=== PATIENT | male | born 1985 | race Caucasian/White ===

== ENCOUNTER 2020-12-07 18:47 | Emergency (ER) | payer OTHER ==
[~2020-12-07] VITALS: Ht 188 cm; Wt 129.6 kg
[2020-12-07] MEDS ORDERED: haloperidol lactate 5mg/ml inj IM ONE (19:30)
[2020-12-07] MEDS ORDERED: diphenhydrAMINE 50 mg/ml inj IM ONE (19:30)
[2020-12-07] MEDS ORDERED: normal saline 1000ML IV soln IVB ONE (19:40)
[2020-12-07] MEDS ORDERED: ketamine 50 mg/ml 10ml vial IM ONE (19:40)
--- NOTE | 2020-12-07 20:20 | NUR ---
per [facility] killbuck, moderate sedation required for head ct. head ct required as pt was banging head en route to hospital and onto gurney rails upon arrival. ketamine dosage verified with christiano willis rn and greta correa
--- NOTE | 2020-12-07 20:37 | NUR ---
RESPIRATORY PAGED [id number] FOR SEDATION
--- NOTE | 2020-12-07 20:55 | NUR ---
received verbal order for 100mg ketamine dosage add on due to pt still being combative and unable to stay flat in [facility] for ct scan of head
--- NOTE | 2020-12-07 21:19 | NUR ---
RT on stand-by from [id number] for sedated pt transport to CT. Unable to do ETCO2 due to pt condition. No adverse events, SPO2 95% on room air.
[2020-12-07 23:00] VITALS: BP 130/73
== END 2020-12-07 22:41 ==
LOC: ER 18:47
DX: Z00.8 Encounter for other general examination (principal); R45.1 Restlessness and agitation
CPT/HCPCS: 70450; 94760; 94799; 96372; 99284; 99285

== ENCOUNTER 2020-12-09 19:10 | Emergency (ER) | payer MEDICAID, OTHER ==
[~2020-12-09] VITALS: Ht 182.9 cm; Wt 93.2 kg
--- NOTE | 2020-12-09 19:48 | NUR ---
Found patient outside smoking, informed him there was a room for him. He states "After this I have to call my nurse obgyn and tell him how many security guards here surrounded me." "It's all harrassment." "Then I have to file a report about police brutality."
[2020-12-09] MEDS ORDERED: ketorolac trometh. 30mg/ml inj. IM ONE (20:25)
--- NOTE | 2020-12-09 20:32 | NUR ---
PATIENT TALKING ACROSS ROOM ASKING FOR HIS RECORDS. I ASKED PATIENT TO COME UP TO NURSES STATION PLEASE IF HE NEEDS TO TALK ABOUT HIS RECORDS. I INFORMED HIM THAT HE CAN CALL MEDICAL RECORDS IN THE MORNING AFTER 0800 TO OBTAIN HIS RECORDS FROM MEDICAL RECORDS. THE PATIENT WANTED TO KNOW THE NAMES "OF ALL THE OFFICERS PRESENT" WHEN HE WAS LAST HERE AT [facility]. I ASKED WHAT DEPARTMENT BROUGTH HIM IN. THE PATIETN DID NOT KNOW. I ASKED THE PATIENT HIS LOCATION PRIOR TO BEING BROUGTH TO THE HOSPITAL ON HIS PREVIOUS VISIT. HE STATED "[place]". I STATED THAT IT WAS PROBABLY THE [employer] AND HE WOULD HAVE TO OBTAIN THE NAMES OF OFFICERS PRESENT FROM THE D.
--- NOTE | 2020-12-09 20:54 | NUR ---
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
--- NOTE | 2020-12-09 20:57 | NUR ---
PATIENT REPORTS NERVE DAMAGE IN HIS HANDS AND A ROTATOR CUFF INJURY. HE REPEATED THE MOVEMENT THAT ALLEGEDLY CAUSED HIS ROTATOR CUFF INJURY BY PLACING HIS HANDS BEHIND HIS BACK AND JERKING THEM UP. HE SMILED THRUOUT THIS ACTION AND REPORTS HIS PAIN THE WORST PAIN EVER IN HIS LIFE. I ASKED THE PATIENT WHAT DOCTOR DIAGNOSED HIS NERVE DAMAGE AND ROTATOR CUFF INJURY. PATIENT STATED NONE, BUT THAT HE GOOGLED MEDICAL INFORMATION INCLUDING INFORMATION ABOUT TORADOL THE PAIN MEDICATION HE IS TO RECEIVE. PATIENT HAS MULTIPLE ABRASIONS ON HIS ARMS THAT APPEAR WNL. NEIDAN WANTS 'EVERYTHING THAT CAN BE DONE TO FIND OUT WHAT HAPPENED TO ME" I DISCUSSED THAT NERVE CONDUCTION STUDIES AND MRIS ARE DONE ON AN OUTPATIENT BASIS FROM PRIMARY CARE DOCTORS. PATIENT DOES NOT HAVE A PMD.
--- NOTE | 2020-12-09 20:59 | NUR ---
patient wanting to file a grievance because the tech tyker is at the bedside with me. patient does not want tech at bedside and i do for safety. patient given choice oflocation of im injection; patient requests right deltoid
[2020-12-09] MEDS ORDERED: CEPH250T PO (21:12)
[2020-12-09] MEDS ORDERED: IBUP-1984 PO (21:12)
--- NOTE | 2020-12-09 21:15 | NUR ---
PATIENT ASKED IF THE TORADOL HELPED HIS PAIN. PATIENT STATED "no" MY PAIN IS STILL A TEN. FABIAN GARCÍA INFORMED. FELIPA STATED "I JUST WANT TO BE KNOCKED OUT AND HAVE NO PAIN" I EXPLAINED THAT WE DO NOT "KNOCK PEOPLE OUT" FOR PAIN CONTROL. I DISCUSSED "RICE", I DISCUSSED REGULARLY TAKING ONE OR BOTH OF TYLENOL AND IBUPROFEN AND HOW TO STAGGER THEM FOR PAIN RELIEF. TAKING IBUPROFEN AND TYLENOL WITH STAGGERING THEM AND TAKING REGULARLY HAS BEEN SHOWN TO BE EXTREMELY EFFECTIVE IN REDUCING PAIN ALONG WITH REST, ICE, ELEVATION AND COMPRESSION. PATIENT AMBULATED IN THE ER FASTRACK WITHOUT LIMPING AND WAVED HIS ARMS ABOUT WHEN TALKING FOR EMPHASIS WITHOUT GRIMACING.
[2020-12-09 21:27] VITALS: BP 143/86
--- NOTE | 2020-12-09 21:30 | NUR ---
PATIENT DISCHARGED BY ANABELA KHAN AND PATIENT WAS OBSERVED WALKING VERY QUICKLY WNL OUT OF THE ER WNL WITH HIS MANAGER HAIR LUKE BHAVNA SCOTT AT HIS SIDE. WALTER VANG ALSO NOTED HOW QUICKLY THE PATIENT WALKED OUT OF THER ER WNL, NO LIMP.
== END 2020-12-09 21:28 | disposition home or self-care (01) ==
LOC: ER 19:12
DX: S60.812A Abrasion of left wrist, initial encounter (principal); S60.811A Abrasion of right wrist, initial encounter; F17.200 Nicotine dependence, unspecified, uncomplicated; Z79.2 Long term (current) use of antibiotics; Z79.899 Other long term (current) drug therapy; X58.XXXA Exposure to other specified factors, initial encounter; Y93.89 Activity, other specified; Y92.89 Other specified places as the place of occurrence of the external cause; Y99.8 Other external cause status
CPT/HCPCS: 96372; 99283; J1885